=== PATIENT | female | born 1945 | race Caucasian/White ===

== ENCOUNTER 2022-03-28 22:08 | Inpatient (IN) ==
[2022-03-28] MEDS ORDERED: ONDANSETRON 4 MG/2 ML VIAL IV STA (22:58)
[2022-03-28] MEDS ORDERED: ACETAMINOPHEN 500 MG TABLET PO STA (22:58)
[2022-03-28] MEDS ORDERED: MORPHINE 2 MG/1 ML SYRINGE IV STA (23:01)
[2022-03-28] MEDS ORDERED: MORPHINE 2 MG/1 ML SYRINGE ONE (23:03)
[2022-03-28] MEDS ORDERED: ACETAMINOPHEN 500 MG TABLET ONE (23:04)
[2022-03-28] MEDS ORDERED: ONDANSETRON 4 MG/2 ML VIAL ONE (23:04)
[2022-03-28 23:50] LABS: Basophils % 0.3 % (0.0-0.8); Eosinophils # 0.2 10*3/uL (0.0-0.87); Eosinophils % 1.3 % (0.00-10.9); Hematocrit 34.8 VOL% (35.7-47.0); Hemoglobin 11.3 GM/DL (12.0-16.0); Immature Granulocytes % 0.6 %; Immature Granulocytes Absolute 0.07 #; Lymphocytes # 1.9 10*3/uL (1.4-4.0); Lymphocytes % 16.5 % (21.3-54.2); Mean Corpuscular HGB Conc 32.5 GM/DL (32-36); Mean Corpuscular Volume 88.8 FL (87-102); Mean Platelet Volume 9.9 FL (9.6-12.0); Monocytes # 1.2 10*3/uL (0.11-0.8); Monocytes % 10.4 % (1.7-12.7); Neutrophils % 70.9 % (38.7-73.9); Platelet Count 194 T/CUMM (130-400); Red Blood Count 3.92 MC/CUMM (3.8-5.5); Red Cell Distribution Width 13.1 % (9.3-17.3); White Blood Count 11.78 T/CUMM (4-12)
[2022-03-29 00:02] LABS: PT Patient Result 10.6 SECS (10.1-12.1); Partial Thromboplastin Time 23.4 SECS (23.7-32.9)
[2022-03-29 00:09] LABS: Bilirubin,Total 0.4 MG/DL (0.20-1.00); Osmolality,Calculated 278.7 MOS/KG (273-304); Potassium 3.7 MMOL/L (3.5-5.1); Total Protein 5.7 G/DL (6.4-8.2)
[2022-03-29] MEDS ORDERED: ALBUTEROL/IPRATROPIUM 3 ML NEB RESP TX PRN (00:24)
[2022-03-29] MEDS ORDERED: hydrALAZINE 20 MG/1 ML VIAL IV PRN (00:24)
[2022-03-29] MEDS ORDERED: ONDANSETRON 4 MG/2 ML VIAL IV PRN ×2 (00:24→09:38)
[2022-03-29] MEDS: MORPHINE 2 MG/1 ML SYRINGE IV PRN ×2 (02:33→12:03)
[2022-03-29 04:56] LABS: Basophils % 0.4 % (0.0-0.8); Eosinophils # 0.2 10*3/uL (0.0-0.87); Hematocrit 37.1 VOL% (35.7-47.0); Immature Granulocytes % 0.9 %; Immature Granulocytes Absolute 0.08 #; Lymphocytes % 20.9 % (21.3-54.2); Mean Corpuscular HGB Conc 32.3 GM/DL (32-36); Mean Corpuscular Volume 88.5 FL (87-102); Mean Platelet Volume 9.8 FL (9.6-12.0); Monocytes # 1.3 10*3/uL (0.11-0.8); Monocytes % 13.7 % (1.7-12.7); Neutrophils % 62.1 % (38.7-73.9); Platelet Count 201 T/CUMM (130-400); Red Blood Count 4.19 MC/CUMM (3.8-5.5); Red Cell Distribution Width 13.1 % (9.3-17.3); White Blood Count 9.31 T/CUMM (4-12)
[2022-03-29 05:30] LABS: Calcium 8.7 MG/DL (8.5-10.1); Osmolality,Calculated 276.8 MOS/KG (273-304); Potassium 3.9 MMOL/L (3.5-5.1); Thyroid Stimulating Hormone 5.36 uIU/ml (0.358-3.74)
[2022-03-29] MEDS ORDERED: ceFAZolin 2,000 MG/50 ML DUPLEX IV ONE (06:14)
[2022-03-29] MEDS: LEVOTHYROXINE 50 MCG TABLET PO SCH (06:24)
[2022-03-29] MEDS ORDERED: LIDOCAINE 2% 5 ML VIAL ONE (06:54)
[2022-03-29] MEDS ORDERED: propofoL 200 MG/20 ML VIAL IV ONE (06:54)
[2022-03-29] MEDS ORDERED: fentaNYL 100 MCG/2 ML VIAL ONE (06:54)
[2022-03-29] MEDS ORDERED: MIDAZOLAM 2 MG/2 ML VIAL ONE (07:21)
[2022-03-29] MEDS ORDERED: ePHEDrine 50 MG/ML VIAL ONE (07:38)
[2022-03-29] MEDS ORDERED: KETOROLAC 30 MG/1 ML VIAL ONE (08:14)
[2022-03-29] MEDS ORDERED: ACETAMINOPHEN INJ 1,000 MG/100 ML VIAL IV ONE (08:14)
[2022-03-29] MEDS ORDERED: ONDANSETRON 4 MG/2 ML VIAL ONE (08:14)
[2022-03-29] MEDS ORDERED: SEVOFLURANE 1 UNIT/15 MINUTE INH ONE (08:14)
[2022-03-29] MEDS ORDERED: BACITRACIN OINT 0.9 GM PACK TOP ONE (08:20)
[2022-03-29] MEDS ORDERED: LACTATED RINGERS 2,000 ML IV ONE (08:59)
[2022-03-29] MEDS ORDERED: MAGNESIUM HYDROXIDE SUSP 30 ML UDCUP PO PRN (09:08)
[2022-03-29] MEDS ORDERED: ZALEPLON 5 MG CAPSULE PO PRN (09:08)
[2022-03-29] MEDS ORDERED: diphenhydrAMINE CAP 25 MG CAPSULE PO PRN (09:08)
[2022-03-29] MEDS ORDERED: DEXAMETHASONE 4 MG/1 ML VIAL ONE (09:35)
[2022-03-29] MEDS ORDERED: ROPIVACAINE 0.5% 30 ML VIAL ONE (09:35)
[2022-03-29] MEDS ORDERED: MEPERIDINE 25 MG/1 ML VIAL ONE (09:37)
[2022-03-29] MEDS ORDERED: MEPERIDINE 25 MG/1 ML VIAL IV PRN (09:38)
[2022-03-29] MEDS: LACTATED RINGERS 1,000 ML IV SCH ×3 (11:14→19:27)
[2022-03-29] MEDS: CHOLECALCIFEROL 5,000 UNIT TABLET PO SCH (12:02)
[2022-03-29] MEDS: MULTIVITAMIN (OCUVITE) TABLET PO SCH (12:02)
[2022-03-29] MEDS: hydroCHLOROthiazide 25 MG TABLET PO SCH (12:02)
[2022-03-29] MEDS: NEBIVOLOL 10 MG TABLET PO SCH (12:02)
[2022-03-29] MEDS: MONTELUKAST 10 MG TABLET PO SCH (12:02)
[2022-03-29] MEDS: busPIRone 15 MG TABLET PO SCH (12:02)
[2022-03-29] MEDS: OMEGA 3 ACID ETHYL ESTERS 1 GM CAPSULE PO SCH (12:02)
[2022-03-29] MEDS: CITALOPRAM 40 MG TABLET PO SCH (12:02)
[2022-03-29] MEDS: PANTOPRAZOLE 40 MG TABLET PO SCH (12:02)
[2022-03-29] MEDS: POLYETHYLENE GLYCOL POWDER 17 GM PACK PO SCH (12:03)
[2022-03-29] MEDS ORDERED: TUBERCULIN SKIN TEST 0.1 ML SYRINGE INTRADERM ONE (13:14)
[2022-03-29] MEDS: ceFAZolin 2,000 MG/50 ML DUPLEX IV SCH ×2 (13:51→22:04)
[2022-03-29] MEDS: DOCUSATE SODIUM 100 MG CAPSULE PO SCH (22:01)
[2022-03-29] MEDS: EZETIMIBE 10 MG TABLET PO SCH (22:01)
[2022-03-29] MEDS: SIMVASTATIN 20 MG TABLET PO SCH (22:02)
[2022-03-29] MEDS: CALCIUM (CARBONATE)/VITAMIN D 600 MG-400 UNIT TABLET PO SCH (22:03)
[2022-03-30 05:25] LABS: Basophils % 0.1 % (0.0-0.8); Eosinophils % 0.3 % (0.00-10.9); Hematocrit 28.3 VOL% (35.7-47.0); Hemoglobin 9.3 GM/DL (12.0-16.0); Immature Granulocytes % 0.7 %; Immature Granulocytes Absolute 0.08 #; Lymphocytes # 0.8 10*3/uL (1.4-4.0); Lymphocytes % 7.7 % (21.3-54.2); Mean Corpuscular HGB Conc 32.9 GM/DL (32-36); Mean Corpuscular Volume 89.6 FL (87-102); Mean Platelet Volume 10.5 FL (9.6-12.0); Monocytes # 1.1 10*3/uL (0.11-0.8); Monocytes % 10.6 % (1.7-12.7); Neutrophils % 80.6 % (38.7-73.9); Platelet Count 150 T/CUMM (130-400); Red Blood Count 3.16 MC/CUMM (3.8-5.5); Red Cell Distribution Width 12.9 % (9.3-17.3); White Blood Count 10.72 T/CUMM (4-12)
[2022-03-30 05:42] LABS: Calcium 8.2 MG/DL (8.5-10.1); Potassium 3.7 MMOL/L (3.5-5.1)
[2022-03-30 06:07] LABS: Free T4 (Free Thyroxine) 1.17 NG/DL (0.76-1.46)
[2022-03-30] MEDS: FONDAPARINUX 2.5 MG/0.5 ML SYRINGE SUBCUT SCH (07:06)
[2022-03-30] MEDS: LACTATED RINGERS 1,000 ML IV SCH ×2 (07:21→09:58)
[2022-03-30] MEDS: LEVOTHYROXINE 50 MCG TABLET PO SCH (07:38)
[2022-03-30] MEDS ORDERED: PANTOPRAZOLE 40 MG TABLET PO SCH (09:00)
[2022-03-30] MEDS: MONTELUKAST 10 MG TABLET PO SCH (09:09)
[2022-03-30] MEDS: CHOLECALCIFEROL 5,000 UNIT TABLET PO SCH (09:11)
[2022-03-30] MEDS: OMEGA 3 ACID ETHYL ESTERS 1 GM CAPSULE PO SCH (09:12)
[2022-03-30] MEDS: DOCUSATE SODIUM 100 MG CAPSULE PO SCH ×2 (09:12→20:33)
[2022-03-30] MEDS: busPIRone 15 MG TABLET PO SCH (09:13)
[2022-03-30] MEDS: MULTIVITAMIN (OCUVITE) TABLET PO SCH (09:13)
[2022-03-30] MEDS: NEBIVOLOL 10 MG TABLET PO SCH (09:14)
[2022-03-30] MEDS: CITALOPRAM 40 MG TABLET PO SCH (09:15)
[2022-03-30] MEDS: hydroCHLOROthiazide 25 MG TABLET PO SCH (09:15)
[2022-03-30] MEDS: PANTOPRAZOLE 40 MG TABLET PO SCH (09:18)
[2022-03-30] MEDS: POLYETHYLENE GLYCOL POWDER 17 GM PACK PO SCH (09:33)
[2022-03-30] MEDS ORDERED: SENNA 8.6 MG TABLET PO PRN (11:32)
[2022-03-30] MEDS: CALCIUM (CARBONATE)/VITAMIN D 600 MG-400 UNIT TABLET PO SCH (20:33)
[2022-03-30] MEDS: EZETIMIBE 10 MG TABLET PO SCH (20:34)
[2022-03-30] MEDS: SIMVASTATIN 20 MG TABLET PO SCH (20:34)
[2022-03-30] MEDS: MAGNESIUM OXIDE 400 MG TABLET PO SCH (20:34)
[2022-03-31] MEDS: LEVOTHYROXINE 50 MCG TABLET PO SCH (05:48)
[2022-03-31] MEDS: FONDAPARINUX 2.5 MG/0.5 ML SYRINGE SUBCUT SCH (05:48)
[2022-03-31 05:53] LABS: Basophils % 0.2 % (0.0-0.8); Eosinophils # 0.2 10*3/uL (0.0-0.87); Eosinophils % 2.2 % (0.00-10.9); Hematocrit 28.8 VOL% (35.7-47.0); Hemoglobin 9.2 GM/DL (12.0-16.0); Immature Granulocytes % 0.6 %; Immature Granulocytes Absolute 0.05 #; Lymphocytes # 1.7 10*3/uL (1.4-4.0); Lymphocytes % 19.8 % (21.3-54.2); Mean Corpuscular HGB Conc 31.9 GM/DL (32-36); Mean Corpuscular Volume 88.9 FL (87-102); Mean Platelet Volume 10.9 FL (9.6-12.0); Monocytes # 1.4 10*3/uL (0.11-0.8); Monocytes % 15.7 % (1.7-12.7); Neutrophils % 61.5 % (38.7-73.9); Platelet Count 160 T/CUMM (130-400); Red Blood Count 3.24 MC/CUMM (3.8-5.5); Red Cell Distribution Width 13.2 % (9.3-17.3); White Blood Count 8.74 T/CUMM (4-12)
[2022-03-31 06:03] LABS: Calcium 8.6 MG/DL (8.5-10.1); Osmolality,Calculated 274.7 MOS/KG (273-304); Potassium 3.8 MMOL/L (3.5-5.1)
[2022-03-31 06:21] LABS: Hypochromia Slight; Lymphocytes 14 % (20-55); Microcytosis Slight; Platelet Estimate Adequate; Total Cells Counted 100
[2022-03-31] MEDS: DOCUSATE SODIUM 100 MG CAPSULE PO SCH (08:26)
[2022-03-31] MEDS: busPIRone 15 MG TABLET PO SCH (08:26)
[2022-03-31] MEDS: CHOLECALCIFEROL 5,000 UNIT TABLET PO SCH (08:26)
[2022-03-31] MEDS: CITALOPRAM 40 MG TABLET PO SCH (08:26)
[2022-03-31] MEDS: MAGNESIUM OXIDE 400 MG TABLET PO SCH (08:27)
[2022-03-31] MEDS: MULTIVITAMIN (OCUVITE) TABLET PO SCH (08:27)
[2022-03-31] MEDS: POLYETHYLENE GLYCOL POWDER 17 GM PACK PO SCH (08:27)
[2022-03-31] MEDS: OMEGA 3 ACID ETHYL ESTERS 1 GM CAPSULE PO SCH (08:27)
[2022-03-31] MEDS: PANTOPRAZOLE 40 MG TABLET PO SCH (08:27)
[2022-03-31] MEDS: hydroCHLOROthiazide 25 MG TABLET PO SCH (08:27)
[2022-03-31] MEDS: MONTELUKAST 10 MG TABLET PO SCH (08:27)
[2022-03-31] MEDS: NEBIVOLOL 10 MG TABLET PO SCH (09:24)
[2022-03-31 11:41] VITALS: BP 117/50
== END 2022-03-31 13:15 | DRG 494 ==
LOC: EDBD → EDUNIT# → N.ED 22:08 → N.EDINP 03-29 00:24 → N.3E 03-29 07:08
PROVIDERS: ADMIT Hospitalist; ATTEND Hospitalist